=== PATIENT | female | born 1940 | race Caucasian/White ===

== ENCOUNTER 2018-11-11 22:43 | Emergency (ER) | payer OTHER ==
[~2018-11-11] VITALS: Ht 160 cm; Wt 54.4 kg
[2018-11-11 22:50] VITALS: Ht 160 cm; Wt 54.4 kg
[2018-11-11 23:49] LABS: BASOPHIL % 0.3 % (0-2); PLATELET COUNT 234 x10^3mcL (130-400); RED CELL DISTRIBUTION WIDTH 14.3 % (11.5-14.5)
[2018-11-12 00:03] LABS: CALCIUM 9.8 mg/dL (8.5-10.1); CARBON DIOXIDE 22.1 mmol/L (21-32); CHLORIDE SERUM 98 mmol/L (98-107); CREATININE SERUM 1.5 mg/dL (0.6-1.0); GLUCOSE SERUM 107 mg/dL (74-106); POTASSIUM SERUM 3.6 mmol/L (3.5-5.1); SODIUM SERUM 138 mmol/L (136-145)
[2018-11-12 00:17] LABS: ALBUMIN 4.2 g/dL (3.4-5.0); ALKALINE PHOSPHATASE 73 U/L (46-116); ALT/SGPT 18 U/L (14-59); AST/SGOT 26 U/L (15-37); BILIRUBIN TOTAL 0.6 mg/dL (0.20-1.00); FREE T4 0.31 ng/dL (0.76-1.46); TOTAL PROTEIN, SERUM 7.7 g/dL (6.4-8.2)
[2018-11-12 01:25] LABS: UA SPECIFIC GRAVITY >=1.030 (1.005-1.035); microscopic required? YES; urine erythrocyte NEGATIVE (NEGATIVE)
[2018-11-12 01:36] LABS: AMPHETAMINE QUAL UR NONE DETECTED (See below)
[2018-11-12 01:57] VITALS: BP 184/91
== END 2018-11-12 02:12 | disposition home or self-care (01) ==
LOC: ED 22:43
PROVIDERS: Emergency Medicine
DX: E86.0 Dehydration (principal); E03.9 Hypothyroidism, unspecified; F32.9 Major depressive disorder, single episode, unspecified; I10 Essential (primary) hypertension; Z88.0 Allergy status to penicillin; Z88.5 Allergy status to narcotic agent
CPT/HCPCS: 84439; G0480; J7030